=== PATIENT | male | born 1970 ===

== ENCOUNTER 2016-12-04 18:27 | Emergency (ER) | payer OTHER ==
[2016-12-04] MEDS ORDERED: GUAIFEN/CODEIN120 ML PO (18:56)
[2016-12-04] MEDS ORDERED: RT ALBUTEROL CC18 GM IH (18:56)
[2016-12-04] MEDS ORDERED: PREDNISONE20 M1 PO (19:02)
== END 2016-12-04 19:10 | disposition home or self-care (01) ==
LOC: ED 18:27
DX: J06.9 Acute upper respiratory infection, unspecified (principal)
CPT/HCPCS: J7512

== ENCOUNTER 2016-12-25 17:29 | Emergency (ER) | payer OTHER ==
[~2016-12-25 17:29] MED LIST: GUAIFEN/CODEIN120 ML PO; PREDNISONE20 M1 PO; RT ALBUTEROL CC18 GM IH
[2016-12-25] MEDS ORDERED: MELOXICAM7.5 MG PO (18:05)
== END 2016-12-25 18:24 | disposition home or self-care (01) ==
LOC: ED 17:29
DX: M77.9 Enthesopathy, unspecified (principal)

== ENCOUNTER 2017-10-09 14:09 | Emergency (ER) | payer SELFPAY ==
[~2017-10-09] VITALS: Wt 81.8 kg
[~2017-10-09 14:09] MED LIST changes: +MELOXICAM7.5 MG PO
[2017-10-09] MEDS ORDERED: PROAIR HFA0.09 MG/AC IH ×2 (14:24→15:36)
[2017-10-09 14:57] LABS: HEMATOCRIT 45.2 % (42.0-52.0); HEMOGLOBIN 16.1 g/dL (13.5-18.0); MEAN CELL VOLUME 85 fl (78-100); MEAN CORPUSCULAR HEMOGLOBIN 30 pg (27-31); MEAN CORPUSCULAR HGB CONC 36 g/dL (33-37); MEAN PLATELET VOLUME 8.8 fl (7.4-10.4); PLATELET COUNT 262 K/mm3 (130-400); RED BLOOD COUNT 5.29 M/mm3 (4.20-5.60); WHITE BLOOD COUNT 10.8 K/mm3 (4.8-10.8)
[2017-10-09 15:09] LABS: LYMPHOCYTE 29 % (20-51); MONOCYTE 4 % (3-10); NEUTROPHILS 57 % (42-75)
[2017-10-09] MEDS ORDERED: PREDNISONE20 M1 PO (15:36)
[2017-10-09] MEDS ORDERED: CETIRIZINE HCL10 MG PO (15:36)
[2017-10-09 15:46] VITALS: BP 115/78
== END 2017-10-09 15:46 | disposition home or self-care (01) ==
LOC: ED 14:09
PROVIDERS: Family Medicine
DX: J45.909 Unspecified asthma, uncomplicated (principal)

== ENCOUNTER 2017-12-01 14:31 | Emergency (ER) | payer OTHER ==
[~2017-12-01] VITALS: Ht 167.6 cm; Wt 90.9 kg
[~2017-12-01 14:31] MED LIST changes: +CETIRIZINE HCL10 MG PO; +PROAIR HFA0.09 MG/AC IH
[2017-12-01] MEDS ORDERED: KETOROLAC10 MG PO (16:30)
[2017-12-01] MEDS ORDERED: ORPHENADRINE C100 MG PO (16:30)
[2017-12-01 16:49] VITALS: BP 133/79
== END 2017-12-01 16:37 | disposition home or self-care (01) ==
LOC: ED 14:31
DX: S39.012A Strain of muscle, fascia and tendon of lower back, initial encounter (principal); S16.1XXA Strain of muscle, fascia and tendon at neck level, initial encounter; V43.52XA Car driver injured in collision with other type car in traffic accident, initial encounter; Y92.410 Unspecified street and highway as the place of occurrence of the external cause

== ENCOUNTER → 2019-02-17 | Outpatient (CLI) | payer SELFPAY ==
[~2019-02-17] MED LIST changes: +KETOROLAC10 MG PO; +ORPHENADRINE C100 MG PO
== END ==
LOC: RAD 12:50
DX: L03.213 Periorbital cellulitis (principal); H53.8 Other visual disturbances
CPT/HCPCS: Q9967

== ENCOUNTER → 2021-06-10 | Outpatient (CLI) | payer SELFPAY | LOC: LAB 07:28 | DX: K31.9 Disease of stomach and duodenum, unspecified (principal) ==